=== PATIENT | female | born 1975 | race Caucasian/White ===

== ENCOUNTER 2021-12-19 14:32 | Emergency (ER) | payer OTHER ==
[~2021-12-19] VITALS: Ht 167.6 cm; Wt 122.5 kg
[~2021-12-19 14:32] MED LIST: ACETAMINOPHEN-1 EAC1 PO; ATIVAN1 MG PO; ATIVAN2 MG PO; AUGMENTIN 875875 MG PO; AUGMENTIN400 MG/53; BACTRIM DS TAB1 EACH PO; BENTYL20 MG PO; BENZONATATE100 MG; CELEXA 10 MG TA10 M1 PO; CELEXA20 MG PO; CIPROFLOXACIN500 M1 PO; DESYREL100 MG PO; DESYREL50 MG PO; FLAGYL 250 MG250 MG PO; FLAGYL500 MG PO; FLEXERIL PO; FLOMAX PO; HYDROCODONE-ACE15 ML PO; HYDROXYZINE PAM50 MG PO; IBUPROFEN 600600 M1 PO; IBUPROFEN 800800 M1 PO; IBUPROFEN 800800 MG PO; LEXAPRO 10 MG T10 M1 PO; LEXAPRO20 MG; LEXAPRO20 MG PO; LORAZEPAM 1 MG T1 M1 PO; LORAZEPAM 1 MG T1 MG PO; LORAZEPAM PO; MACROBID 100 M100 M1 PO; MEDROLDOSEPACK PO; MUCINEX22 ML; NAPROSYN500 MG PO; NORCO 5-325 TA1 EACH PO; NORFLEX100 MG PO; NYSTATIN1 EA10; PERCOCET 5-3251 EACH PO; PHENERGAN 25 MG25 M1 PO; PHENERGAN25 MG RECTAL; PROAIR HFA8.5 GM; PROTONIX40 M2 PO; PYRIDIUM200 MG PO; REGLAN 5 MG TAB5 MG PO; SKELAXIN 800 M800 M1 PO; TESSALON PERLE100 MG PO; TOPAMAX 25 MG T25 M1 PO; TRAMADOL 50 MG50 MG PO; TRAZODONE 150150 M1 PO; TYLENOL W/CODEI1 TA2 PO; ULTRAM 50MG TAB50 MG PO; UNISOM SLEEP AI25 MG; VENTOLIN HFA 1818 GM; XANAX 0.5 MG0.5 M1 PO; ZANTAC 7575 MG PO; ZOFRAN 4 MG ORAL4 M1 DIS; ZOFRAN ODT4 MG PO; ZOFRAN4 MG PO; ZPAK PO
[2021-12-19] MEDS ORDERED: NORVASC5 MG PO (14:42)
[2021-12-19] MEDS ORDERED: BUSPAR30 MG PO (14:43)
[2021-12-19 15:46] LABS: ABSOLUTE NEUTROPHILS 7.4 thou/uL (1.4-8.2); BASOPHILS 0.6 % (0.0-2.0); EOSINOPHILS 1.8 % (0.0-3.0); HEMATOCRIT 40.8 % (37.0-47.0); HEMOGLOBIN 13.9 gm/dL (12.0-15.0); LYMPHOCYTES 22.7 % (24.0-44.0); MCH 28.1 pg (26.0-34.0); MCHC 34.2 g/dL (28.0-37.0); MCV 82.2 fL (80.0-100.0); MONOCYTES 4.5 % (1.0-8.0); PLATELET COUNT 398 thou/uL (150-400); POLYS 70.4 % (36.0-66.0); RBC 4.96 mil/uL (4.20-5.00); RDW 13.3 % (10.5-14.5); WBC 10.5 thou/uL (4.0-11.0)
[2021-12-19 15:46] LABS: URINE BILIRUBIN NEGATIVE (Negative); URINE BLOOD TRACE (Negative); URINE CLARITY CLEAR; URINE COLOR YELLOW; URINE GLUCOSE-RANDOM* NEGATIVE (Negative); URINE KETONES NEGATIVE (Negative); URINE LEUKOCYTES-REFLEX TRACE (Negative); URINE NITRITE-REFLEX NEGATIVE (Negative); URINE PROTEIN (DIPSTICK) NEGATIVE (Negative); URINE SPECIFIC GRAVITY 1.025 (1.005-1.035); URINE UROBILINOGEN 0.2 E.U./dl (0.2-1.0)
[2021-12-19 16:39] LABS: ALBUMIN 3.6 g/dL (3.4-5.0); CALCIUM 8.4 mg/dL (8.5-10.1); CREATININE 0.6 mg/dL (0.6-1.0); POTASSIUM 3.5 mmol/L (3.5-5.1); TOTAL BILIRUBIN 0.5 mg/dL (0.2-1.0); TOTAL PROTEIN 6.2 g/dL (6.4-8.2)
[2021-12-19] MEDS ORDERED: IBUPROFEN 800800 M1 PO (16:49)
[2021-12-19] MEDS ORDERED: ZOFRAN ODT4 MG PO (16:49)
[2021-12-19 17:16] VITALS: BP 129/63
--- NOTE | 2021-12-21 07:37 | EKG ---
[address] [place] [address] ELECTROCARDIOGRAM REPORT Name: NICOLE CHAMBERLAIN Room #: [facility]P [facility]ENTERDaph[facility] [id number] Admission: 12/19/21 Attend Phys: Discharge: 12/19/21 Date of : 71 Report #: [id number] [facility] ED Test Date: 2021-12-19 Test Time: 14:55:46 Pat Name: NICOLE CHAMBERLAIN Department: Room: Gender: F [employer]: : 1975 Requested By: Slick Jara Order Number: [id number] MD: Blas Rivera Measurements Intervals [place] Rate: 89 P: -11 [place]: 154 QRS: 22 QRSD: 129 T: 39 QT: 415 QTc: 505 Interpretive Statements Sinus rhythm Nonspecific intraventricular conduction delay Compared to ECG 11/02/2014 16:07:58 Intraventricular conduction delay now present Prolonged QT interval no longer present Electronically Signed On 12-21-2021 7:37:17 PROCESSING MANAGER by Blas Rivera [email or web address] <ELECTRONICALLY SIGNED> By: Blas Rivera MD, [facility] 12/21/21 0737 1455 1455 Blas Rivera MD, FACC /EPI
== END 2021-12-19 17:16 | disposition home or self-care (01) ==
LOC: ER 14:32
PROVIDERS: Physician Assistant
DX: I88.0 Nonspecific mesenteric lymphadenitis (principal); F41.9 Anxiety disorder, unspecified; F17.210 Nicotine dependence, cigarettes, uncomplicated; Z90.49 Acquired absence of other specified parts of digestive tract; Z90.710 Acquired absence of both cervix and uterus; Z86.73 Personal history of transient ischemic attack (TIA), and cerebral infarction without residual deficits; Z79.899 Other long term (current) drug therapy; Z88.8 Allergy status to other drugs, medicaments and biological substances; Z88.6 Allergy status to analgesic agent